=== PATIENT | female | born 1990 | race Caucasian/White ===

== ENCOUNTER 2017-10-27 19:02 | Emergency (ER) | payer BC ==
[2017-10-27] MEDS ORDERED: ACETAMINOPHEN 325 MG TABLET ONE (19:47)
[2017-10-27] MEDS ORDERED: IBUPROFEN 400 MG TAB ONE (19:48)
[2017-10-27] MEDS ORDERED: IBUPROFEN 200 MG TAB PO ONE (19:48)
--- NOTE | 2017-10-27 21:09 | EDPHYS ---
Physician Documentation [facility] Name: Luis Connor Age: 27 yrs Sex: Female : 1990 Arrival Date: 10/27/2017 Time: 19:04 Bed 5 Private MD: ED Physician Uli Dukes HPI: 10/28 01:57 This 27 yrs old Female presents to ER via Ambulatory with complaints of Sore snw Throat, Swollen Glands. 01:57 The patient presents with sore throat, dysphagia. The patient describes throat pain as snw raw, scratchy. Onset: The symptoms/episode began/occurred suddenly, 3 day(s) ago. Severity of symptoms: At their worst the symptoms were moderate. Associated signs and symptoms: Pertinent positives: chills, cough, fever, flu-like symptoms, headache, Sore throat. It is unknown whether or not the patient has had similar symptoms in the past. The patient has not recently seen a physician. 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 - Social history:: Smoking status: Patient/guardian denies using tobacco. ROS: 10/28 01:56 Eyes: Negative for injury, pain, redness, and discharge, Neck: Negative for injury, snw pain, and swelling, Cardiovascular: Negative for chest pain, palpitations, and edema, Respiratory: Negative for shortness of breath, cough, wheezing, and pleuritic chest pain, Abdomen/GI: Negative for abdominal pain, nausea, vomiting, diarrhea, and constipation, Back: Negative for injury and pain, : Negative for injury, bleeding, discharge, and swelling, MS/Extremity: Negative for injury and deformity, Skin: Negative for injury, rash, and discoloration, Neuro: Negative for headache, weakness, numbness, tingling, and seizure. Constitutional: Positive for body aches, fever, malaise, poor PO intake. ENT: Positive for sinus congestion, sore throat. Exam: 01:54 Head/Face: Normocephalic, atraumatic. Eyes: Pupils equal round and reactive to light, snw extra-ocular motions intact. Lids and lashes normal. Conjunctiva and sclera are non-icteric and not injected. Cornea within normal limits. Periorbital areas with no swelling, redness, or edema. Neck: Trachea midline, no thyromegaly or masses palpated, and no cervical lymphadenopathy. Supple, full range of motion without nuchal rigidity, or vertebral point tenderness. No Meningismus. Chest/axilla: Normal chest wall appearance and motion. Nontender with no deformity. No lesions are appreciated. 01:54 Respiratory: Lungs have equal breath sounds bilaterally, clear to auscultation and percussion. No rales, rhonchi or wheezes noted. No increased work of breathing, no retractions or nasal flaring. Abdomen/GI: Soft, non-tender, with normal bowel sounds. No distension or tympany. No guarding or rebound. No evidence of tenderness throughout. Back: No spinal tenderness. No costovertebral tenderness. Full range of motion. Skin: Warm, dry with normal turgor. Normal color with no rashes, no lesions, and no evidence of cellulitis. MS/ Extremity: Pulses equal, no cyanosis. Neurovascular intact. Full, normal range of motion. Neuro: Awake and alert, GCS 15, oriented to person, place, time, and situation. Cranial nerves II-XII grossly intact. Motor strength 5/5 in all extremities. Sensory grossly intact. Cerebellar exam normal. Normal gait. 01:54 Constitutional: The patient appears alert, awake, uncomfortable. 01:54 ENT: Mouth: is normal, Posterior pharynx: Tonsils: bilaterally enlarged, with exudate, erythema, that is mild, exudate, that is moderate, Voice: is normal. 01:54 ENT: TM's: erythema, that is moderate, bilaterally, fluid levels, bilaterally. 01:54 Cardiovascular: Rate: tachycardic. Vital Signs: 10/27 19:52 BP 121 / 99; Pulse 120; Resp 25; Temp 102.9; Pulse Ox 99% on R/A; Weight 84.82 kg; aj Height 5 ft. 7 in. (170.18 cm); 21:01 BP 111 / 68; Pulse 110; Resp 18; Pulse Ox 98% on R/A; ak1 21:18 BP 107 / 62; Pulse 97; Resp 16; Temp 99.4(O); Pulse Ox 99% on R/A; Pain 6/10; cc 19:52 Body Mass Index 29.29 (84.82 kg, 170.18 cm) MDM: 20:38 Patient medically screened. snw 10/28 01:56 Data reviewed: vital signs, nurses notes. Data interpreted: Pulse oximetry: on room air snw is 99 %. Interpretation: normal. Counseling: I had a detailed discussion with the patient and/or guardian regarding: the historical points, exam findings, and any diagnostic results supporting the discharge/admit diagnosis, lab results, the need for outpatient follow up, to return to the emergency department if symptoms worsen or persist or if there are any questions or concerns that arise at home. Special discussion: Based on the history and exam findings, there is no indication for further emergent testing or inpatient evaluation. I discussed with the patient/guardian the need to see the primary care provider for further evaluation of the symptoms. 10/27 19:54 Order name: Strep; Complete Time: 20:38 10/27 20:28 Order name: Throat Culture [facility] 10/27 20:40 Order name: Urine Culture [facility] 10/27 20:40 Order name: Urine Microscopic Only [facility] 10/27 21:17 Order name: Urine Dipstick--Ancillary (enter results) [facility] 10/27 20:40 Order name: Urine Test (obtain specimen); Complete Time: 21:16 sn 10/27 20:40 Order name: Urine Dipstick-Ancillary (obtain specimen); Complete Time: 21:16 [facility] 10/27 21:07 Order name: Recheck VS: temp; Complete Time: 21:16 w 10/27 21:17 Order name: Urine --Ancillary (enter results) [facility] 10/27 21:08 Order name: PO challenge; Complete Time: 21:20 snw Administered Medications: 10/27 19:54 Drug: Tylenol 650 mg Route: PO; aj 21:02 Follow up: Response: Temperature is decreased ak1 19:54 Drug: Motrin 800 mg Route: PO; aj 21:02 Follow up: Response: No adverse reaction; Temperature is decreased ak1 21:23 Drug: Rocephin (cefTRIAXone) 1 grams Route: IM; Site: right gluteus; bp 21:38 Follow up: Response: No adverse reaction bp 21:23 Drug: Decadron 8 mg Route: PO; bp 21:38 Follow up: Response: No adverse reaction bp Disposition: 10/28 14:29 Co-signature as Attending Physician, Uli Dukes MD I agree with the assessment and shaista plan of care. Disposition: 10/27/17 21:09 Discharged to Home. Impression: Fever, unspecified, Acute pharyngitis, Acute upper respiratory infection, unspecified. - Condition is Stable. - Discharge Instructions: Fever, Adult, Pharyngitis, Upper Respiratory Infection, Adult, Rehydration, Adult. - Prescriptions for Diclofenac Sodium 75 mg Oral Tablet Sustained Release - take 1 tablet by ORAL route 2 times per day; 30 tablet. Zithromax 500 mg Oral Tablet - take 1 tablet by ORAL route once daily for 5 days; 5 tablet. - Work release form, Medication Reconciliation Form, Thank You Letter, Antibiotic Education, Prescription Opioid Use form. - Follow up: Private Physician; When: 2 - 3 days; Reason: Recheck today's complaints, Continuance of care, Re-evaluation by your physician. Follow up: Emergency Department; When: As needed; Reason: Worsening of condition. Signatures: Dispatcher [employer] Syeda Solomon RN RN aj Anderson, Corey, MD MD cha Therrien, Shelly, BATTERYMAN-C BATTERYMAN-Csnw Izaiah Ruiz RN RN bp Krenek, Amber RN ak1 Corrections: (The following items were deleted from the chart) 10/27 21:23 20:47 GC (Malcom/Chl) Probe URINE ordered. EDMS EDMS
--- NOTE | 2017-10-27 21:09 | ER ---
Nurse's Notes [facility] Name: Luis Connor Age: 27 yrs Sex: Female : 1990 Arrival Date: 10/27/2017 Time: 19:04 Bed 5 Private MD: Diagnosis: Fever, unspecified;Acute pharyngitis;Acute upper respiratory infection, unspecified Presentation: 10/27 19:49 Presenting complaint: Patient states: Sore throat with fever for 3 days. Bilaterally aj swollen tonsils with green patchy exudate noted in triage. Transition of care: patient was not received from another setting of care. Onset of symptoms was October 23, 2017. Initial Sepsis Screen: Does the patient meet any 2 criteria? Temp <36.0*C (96.8*F)) or > 38.3*C (100.4*F). HR > 90 bpm. Yes Does the patient have a suspected source of infection? Yes:. Care prior to arrival: None. 19:49 Method Of Arrival: Ambulatory aj 19:49 Acuity: SHASTA 4 aj Triage Assessment: 19:52 General: Appears in no apparent distress. uncomfortable, Behavior is calm, cooperative, aj appropriate for age. Pain: Complains of pain in left aspect of posterior pharynx and right aspect of posterior pharynx. EENT: Throat has patchy exudate has enlarged tonsils bilaterally. Neuro: Level of Consciousness is awake, alert, obeys commands, Oriented to person, place, time, situation, Appropriate for age. Respiratory: Reports cough that is Airway is patent Respiratory effort is even, unlabored, Respiratory pattern is regular, symmetrical. Derm: Skin is intact, is healthy with good turgor, Skin is normal, Skin temperature is hot. 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 - Social history:: Smoking status: Patient/guardian denies using tobacco. Screenin:00 Abuse screen: Denies threats or abuse. Denies injuries from another. Nutritional ak1 screening: No deficits noted. Tuberculosis screening: No symptoms or risk factors identified. Fall Risk None identified. Assessment: 20:59 General: Appears uncomfortable, Behavior is calm, cooperative. Pain: Complains of pain ak1 in throat. Neuro: No deficits noted. Cardiovascular: No deficits noted. Respiratory: Airway is patent Breath sounds are clear bilaterally. GI: No signs and/or symptoms were reported involving the gastrointestinal system. : No signs and/or symptoms were reported regarding the genitourinary system. EENT: Throat is reddened. Derm: Reports fever. Musculoskeletal: No signs and/or symptoms reported regarding the musculoskeletal system. 21:36 Reassessment: PT D/C HOME AMBULATORY, DX WITH ACUTE URI, ACUTE PHARYNGITIS AND FEVER. bp Respiratory: Airway is patent Respiratory effort is even, unlabored, Respiratory pattern is regular, symmetrical. Vital Signs: 19:52 BP 121 / 99; Pulse 120; Resp 25; Temp 102.9; Pulse Ox 99% on R/A; Weight 84.82 kg; aj Height 5 ft. 7 in. (170.18 cm); 21:01 BP 111 / 68; Pulse 110; Resp 18; Pulse Ox 98% on R/A; ak1 21:18 BP 107 / 62; Pulse 97; Resp 16; Temp 99.4(O); Pulse Ox 99% on R/A; Pain 6/10; cc 19:52 Body Mass Index 29.29 (84.82 kg, 170.18 cm) aj ED Course: 19:04 Patient arrived in ED. as 19:51 Triage completed. aj 19:52 Arm band placed on left wrist. Patient placed in waiting room, Patient notified of wait aj time. Antipyretics given from triage as ordered by an ER provider. Labs ordered per protocol. 20:06 Geno Kelly FNP-C is PHCP. snw 20:06 Uli Dukes MD is Attending Physician. snw 20:59 Nga Suggs, MAYRLU is Primary Nurse. ak1 21:00 Patient has correct armband on for positive identification. Bed in low position. Call ak1 light in reach. Side rails up X 1. Adult w/ patient. Pulse ox on. NIBP on. 21:01 No provider procedures requiring assistance completed. ak1 21:37 Patient did not have IV access during this emergency room visit. bp Administered Medications: 19:54 Drug: Tylenol 650 mg Route: PO; aj 21:02 Follow up: Response: Temperature is decreased ak1 19:54 Drug: Motrin 800 mg Route: PO; aj 21:02 Follow up: Response: No adverse reaction; Temperature is decreased ak1 21:23 Drug: Rocephin (cefTRIAXone) 1 grams Route: IM; Site: right gluteus; bp 21:38 Follow up: Response: No adverse reaction bp 21:23 Drug: Decadron 8 mg Route: PO; bp 21:38 Follow up: Response: No adverse reaction bp Outcome: 21:09 Discharge ordered by . snilana 21:37 Discharged to home ambulatory. bp 21:37 Condition: stable 21:37 Discharge instructions given to patient, Instructed on discharge instructions, follow up and referral plans. medication usage, Demonstrated understanding of instructions, follow-up care, medications, Prescriptions given X 2. 21:38 Patient left the ED. bp Addendum: 10/30/2017 10:50 Addendum: Culture Results: Positive urine culture. No further action required. Other: i w culture report was reviewed by Figueroa SEGOVIA, pt had no urinary complaints, no further action needed . Signatures: Syeda Serra RN RN Geno Gonsalez, UMBRELLA REPAIRER-C UMBRELLA REPAIRER-Fouzia White Irene, MARYLU VALERO Elisabeth Banks Amber, RN RN ak1 Izaiah Ruiz RN RN bp
[2017-10-27] MEDS ORDERED: CEFTRIAXONE 1000 MG/VIAL ONE (21:18)
[2017-10-27] MEDS ORDERED: DEXAMETHASONE 4 MG TAB ONE (21:18)
[2017-10-27] MEDS ORDERED: LIDOCAINE 1% MPF 5 ML VIAL ONE (21:18)
[2017-10-27 21:51] LABS: Urine Blood TRACE (NEG); Urine Glucose NEGATIVE (NEG); Urine Protein NEGATIVE (NEG); Urine Specific Gravity 1.015 (1.005-1.030)
[2017-10-27 21:51] LABS: Urine Bacteria 20-50 /HPF (<20); Urine Culture Reflex Order NOT NEEDED; Urine RBC <5 /HPF (NONE SEEN)
== END 2017-10-27 21:38 | disposition home or self-care (01) ==
LOC: ER 19:02
DX: J06.9 Acute upper respiratory infection, unspecified (principal); J02.9 Acute pharyngitis, unspecified; Z88.2 Allergy status to sulfonamides; Z88.8 Allergy status to other drugs, medicaments and biological substances; J45.909 Unspecified asthma, uncomplicated
CPT/HCPCS: 81003; 81015; 81025; 87070; 87077; 87081; 87086; 87088; 87186; 96372; 99284

== ENCOUNTER 2019-03-15 17:47 | Emergency (ER) | payer BC, SELFPAY ==
[2019-03-15 18:25] LABS: Urine Blood NEGATIVE (NEG); Urine Glucose NEGATIVE (NEG); Urine Protein NEGATIVE (NEG); Urine pH 6.5 (5.0-7.0)
[2019-03-15 19:28] LABS: Urine Bacteria >50 /HPF (<20); Urine RBC <5 /HPF (NONE SEEN)
[2019-03-15 19:29] LABS: Urine Culture Reflex Order NOT NEEDED; Urine Mucus 1+ /HPF (NONE SEEN)
[2019-03-15 20:15] LABS: Absolute Lymphocytes (CBC) 1.7 K/uL (0.7-4.9); Basophils % 0.8 % (0-1.3); Lymphocytes % 22.1 % (15.3-44.8); MPV 8.2 fL (7.6-11.3)
[2019-03-15] MEDS ORDERED: NA CHLORIDE 0.9% 1,000 ML ONE (20:20)
[2019-03-15] MEDS ORDERED: CEFTRIAXONE/SWI 1gm 1 GM/10 ML SYR ONE (20:20)
[2019-03-15 20:37] LABS: Potassium 3.7 mmol/L (3.5-5.1)
--- NOTE | 2019-03-15 20:40 | ER ---
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 Transition of care: patient was not received from another setting of care. Onset of symptoms was March 08, 2019. Risk Assessment: Do you want to hurt yourself or someone else? Patient reports no desire to harm self or others. Initial Sepsis Screen: Does the patient meet any 2 criteria? No. Patient's initial sepsis screen is negative. Does the patient have a suspected source of infection? No. Patient's initial sepsis screen is negative. Care prior to arrival: None. 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 - Social history:: Smoking status: Smoking status: Patient/guardian denies using tobacco. - Ebola Screening: : Patient negative for fever greater than or equal to 101.5 degrees Fahrenheit, and additional compatible Ebola Virus Disease symptoms Patient denies exposure to infectious person Patient denies travel to an Ebola-affected area in the 21 days before illness onset No symptoms or risks identified at this time. Screenin:40 Abuse screen: Denies threats or abuse. Nutritional screening: No deficits noted. tr5 Tuberculosis screening: No symptoms or risk factors identified. Fall Risk None identified. Assessment: 18:40 General: Appears in no apparent distress. Behavior is calm, cooperative, appropriate tr5 for age. Pain: Complains of pain in pelvis. Pain: Pain does not radiate. Quality of pain is described as crampy, Pain began suddenly, Is intermittent. Neuro: Level of Consciousness is awake, alert, obeys commands, Oriented to person, place, time, Office Engineer are equal bilaterally Moves all extremities. Cardiovascular: Heart tones present Capillary refill < 3 seconds Pulses are all present. Edema is absent. Respiratory: Airway is patent Respiratory effort is even, unlabored, Respiratory pattern is regular, symmetrical. GI: Reports lower abdominal pain, intolerance of food, nausea, vomiting. : No signs and/or symptoms were reported regarding the genitourinary system. EENT: No signs and/or symptoms were reported regarding the EENT system. Derm: No signs and/or symptoms reported regarding the dermatologic system. Musculoskeletal: Capillary refill < 3 seconds, Range of motion: intact in all extremities. 20:00 Reassessment: No changes from previously documented assessment. Patient and/or family tr5 updated on plan of care and expected duration. Pain level reassessed. Patient is alert, oriented x 3, equal unlabored respirations, skin warm/dry/pink. 21:00 Reassessment: Patient appears in no apparent distress at this time. No changes from tr5 previously documented assessment. Patient and/or family updated on plan of care and expected duration. Pain level reassessed. Patient is alert, oriented x 3, equal unlabored respirations, skin warm/dry/pink. Vital Signs: 18:03 BP 113 / 69; Pulse 92; Resp 16; Temp 98.7; Pulse Ox 99% on R/A; Weight 81.65 kg; Height iw 5 ft. 7 in. (170.18 cm); Pain 7/10; 19:00 BP 110 / 80; Pulse 88; Resp 16; Pulse Ox 100% on R/A; tr5 20:00 BP 116 / 84; Pulse 90; Resp 17; Pulse Ox 99% on R/A; tr5 21:00 BP 112 / 82; Pulse 90; Resp 17; Pulse Ox 100% on R/A; tr5 18:03 Body Mass Index 28.19 (81.65 kg, 170.18 cm) ED Course: 17:51 Patient arrived in ED. rg4 18:02 Triage completed. iw 18:03 Arm band placed on. iw 18:38 Ifeanyi Baker, RN is Primary Nurse. tr5 18:40 Bed in low position. Call light in reach. Side rails up X 1. tr5 18:41 Figueroa Arias PA is PHCP. jr8 18:41 Izabella Houser MD is Attending Physician. jr8 19:59 Missed attempt(s): 22 gauge in right antecubital area. lt1 20:00 Initial lab(s) drawn, by me, sent to lab. Inserted saline lock: 22 gauge in left lt1 antecubital area, using aseptic technique. 20:23 Transvaginal OB US In Process Unspecified. EDMS 21:26 No provider procedures requiring assistance completed. IV discontinued. tr5 Administered Medications: 20:24 Drug: NS 0.9% 1000 ml Route: IV; Rate: 1000 ml; Site: right antecubital; tr5 21:53 Follow up: IV Status: Completed infusion; IV Intake: 1000ml tr5 20:24 Drug: Rocephin 1 grams Route: IV; Rate: calculated rate; Site: right antecubital; tr5 21:53 Follow up: Response: No adverse reaction; IV Status: Completed infusion tr5 Intake: 21:53 IV: 1000ml; Total: 1000ml. tr5 Outcome: 20:39 Discharge ordered by . jr8 21:26 Discharged to home ambulatory. tr5 21:26 Condition: stable 21:26 Discharge instructions given to patient, significant other, Instructed on discharge instructions, follow up and referral plans. medication usage, Demonstrated understanding of instructions, follow-up care, medications, Prescriptions given X 2. 21:54 Patient left the ED. 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
--- NOTE | 2019-03-15 20:41 | EDPHYS ---
Physician Documentation [facility] Name: Luis Connor Age: 28 yrs Sex: Female : 1990 Arrival Date: 03/15/2019 Time: 17:51 Bed 28 Private MD: ED Physician Izabella Houser HPI: 03/15 20:12 This 28 yrs old Female presents to ER via Ambulatory with complaints of jr8 Pelvic Pain, 11 wks . 20:12 Onset: The symptoms/episode began/occurred acutely, yesterday. Associated signs and jr8 symptoms: Pertinent positives: vomiting. Modifying factors: The patient symptoms are alleviated by nothing, the patient symptoms are aggravated by nothing. The patient has not experienced similar symptoms in the past. The patient has not recently seen a physician. 20:13 The estimated gestational age is 11 weeks. course: care: none, jr8 Leakage of Fluid: none appreciated, Ultrasound: the patient has not had an ultrasound. Previous pregnancies: the patient has never been . [employer]ER: 18:03 LMP 12/30/2018 iw 20:13 1, Full Term 0, Premature 0, 0, Living 0, LMP 12/30/2018, jr8 Verified, EDC 10/06/2019, Gestational age from LMP: 10 weeks 6 days Historical: - Allergies: 18:03 Benadryl; iw 18:03 Sulfa (Sulfonamide Antibiotics); iw - Home Meds: 18:03 None [Active]; iw - PMHx: 18:03 Asthma; iw - PSHx: 18:03 None; iw - Immunization history:: Adult Immunizations not up to date. - Social history:: Smoking status: Smoking status: Patient/guardian denies using tobacco. - Ebola Screening: : Patient negative for fever greater than or equal to 101.5 degrees Fahrenheit, and additional compatible Ebola Virus Disease symptoms Patient denies exposure to infectious person Patient denies travel to an Ebola-affected area in the 21 days before illness onset No symptoms or risks identified at this time. ROS: 20:13 Eyes: Negative for injury, pain, redness, and discharge, ENT: Negative for injury, jr8 pain, and discharge, Neck: Negative for injury, pain, and swelling, Cardiovascular: Negative for chest pain, palpitations, and edema, Respiratory: Negative for shortness of breath, cough, wheezing, and pleuritic chest pain, Back: Negative for injury and pain, MS/Extremity: Negative for injury and deformity, Skin: Negative for injury, rash, and discoloration, Neuro: Negative for headache, weakness, numbness, tingling, and seizure. 20:13 Abdomen/GI: Positive for abdominal pain, nausea and vomiting, Negative for diarrhea, abdominal distension, anorexia, dysphagia, hematemesis, black/tarry stool, rectal pain, rectal bleeding, bowel incontinence, flatulence. 20:13 : Positive for urinary frequency, menstrual abnormality, Negative for vaginal bleeding, vaginal discharge, vaginal itching. Exam: 20:13 Eyes: Pupils equal round and reactive to light, extra-ocular motions intact. Lids and jr8 lashes normal. Conjunctiva and sclera are non-icteric and not injected. Cornea within normal limits. Periorbital areas with no swelling, redness, or edema. ENT: Nares patent. No nasal discharge, no septal abnormalities noted. Tympanic membranes are normal and external auditory canals are clear. Oropharynx with no redness, swelling, or masses, exudates, or evidence of obstruction, uvula midline. Mucous membranes moist. Neck: Trachea midline, no thyromegaly or masses palpated, and no cervical lymphadenopathy. Supple, full range of motion without nuchal rigidity, or vertebral point tenderness. No Meningismus. Cardiovascular: Regular rate and rhythm with a normal S1 and S2. No gallops, murmurs, or rubs. Normal PMI, no JVD. No pulse deficits. Respiratory: Lungs have equal breath sounds bilaterally, clear to auscultation and percussion. No rales, rhonchi or wheezes noted. No increased work of breathing, no retractions or nasal flaring. Back: No spinal tenderness. No costovertebral tenderness. Full range of motion. Skin: Warm, dry with normal turgor. Normal color with no rashes, no lesions, and no evidence of cellulitis. MS/ Extremity: Pulses equal, no cyanosis. Neurovascular intact. Full, normal range of motion. Neuro: Awake and alert, GCS 15, oriented to person, place, time, and situation. Cranial nerves II-XII grossly intact. Motor strength 5/5 in all extremities. Sensory grossly intact. Cerebellar exam normal. Normal gait. 20:13 Abdomen/GI: Inspection: abdomen appears normal, Bowel sounds: active, all quadrants, Palpation: soft, in all quadrants, mild abdominal tenderness, in the suprapubic area, right lower quadrant and left lower quadrant, mass, is not appreciated, rebound tenderness, is not appreciated, voluntary guarding, is not appreciated, involuntary guarding, is not appreciated, no appreciated organomegaly, Indicators: McBurney's point is not tender, Velasquez's sign is negative, Rovsing's sign is negative, Liver: tenderness, is not appreciated. Vital Signs: 18:03 BP 113 / 69; Pulse 92; Resp 16; Temp 98.7; Pulse Ox 99% on R/A; Weight 81.65 kg; Height iw 5 ft. 7 in. (170.18 cm); Pain 7/10; 19:00 BP 110 / 80; Pulse 88; Resp 16; Pulse Ox 100% on R/A; tr5 20:00 BP 116 / 84; Pulse 90; Resp 17; Pulse Ox 99% on R/A; tr5 21:00 BP 112 / 82; Pulse 90; Resp 17; Pulse Ox 100% on R/A; tr5 18:03 Body Mass Index 28.19 (81.65 kg, 170.18 cm) iw MDM: 19:20 Patient medically screened. jr8 20:20 Differential diagnosis: threatened Ab, inevitable Ab, missed Ab, ectopic . jr8 Data reviewed: vital signs, nurses notes, lab test result(s), radiologic studies, ultrasound. Data interpreted: Pulse oximetry: on room air is 99 %. Interpretation: normal. Counseling: I had a detailed discussion with the patient and/or guardian regarding: the historical points, exam findings, and any diagnostic results supporting the discharge/admit diagnosis, lab results, radiology results, the need for outpatient follow up, an OB/Gyne specialist, to return to the emergency department if symptoms worsen or persist or if there are any questions or concerns that arise at home. 03/15 18:10 Order name: Urine Microscopic Only; Complete Time: 19:32 ss 03/15 18:10 Order name: Urine Culture 03/15 18:11 Order name: Urine Dipstick--Ancillary (enter results); Complete Time: 19:32 ss 03/15 18:11 Order name: Urine --Ancillary (enter results); Complete Time: 19:32 ss 09/12 19:32 Order name: Quantitative Hcg [facility] 03/15 19:32 Order name: Basic Metabolic Panel [facility] 03/15 19:32 Order name: CBC with Diff; Complete Time: 20:19 [facility] 03/15 19:32 Order name: IV Saline Lock; Complete Time: 20:00 [facility] 03/15 19:32 Order name: Labs collected and sent; Complete Time: 20:00 [facility] 03/15 19:32 Order name: NPO; Complete Time: 19:36 [facility] 03/15 19:32 Order name: Urine Dipstick-Ancillary (obtain specimen); Complete Time: 19:36 [facility] 03/15 19:32 Order name: Transvaginal OB US; Complete Time: 21:46 jr Administered Medications: 20:24 Drug: NS 0.9% 1000 ml Route: IV; Rate: 1000 ml; Site: right antecubital; tr5 21:53 Follow up: IV Status: Completed infusion; IV Intake: 1000ml tr5 20:24 Drug: Rocephin 1 grams Route: IV; Rate: calculated rate; Site: right antecubital; tr5 21:53 Follow up: Response: No adverse reaction; IV Status: Completed infusion tr5 Disposition: 03/15/19 20:39 Discharged to Home. Impression: Urinary tract infection, site not specified, Abdominal and pelvic pain. - Condition is Stable. - Discharge Instructions: Abdominal Pain During , and Urinary Tract Infection. - Prescriptions for Macrobid 100 mg Oral Capsule - take 1 capsule by ORAL route every 12 hours for 7 days; 14 capsule. promethazine 25 mg Oral Tablet - take 1 tablet by ORAL route every 6 hours As needed; 20 tablet. - Medication Reconciliation Form, Thank You Letter, Antibiotic Education, Prescription Opioid Use form. - Follow up: Private Physician; When: 2 - 3 days; Reason: Recheck today's complaints, Continuance of care, Re-evaluation by your physician. - Problem is new. - Symptoms have improved. Addendum: 03/19/2019 15:53 Co-signature as Attending Physician, Izabella Houser MD. m a2 Signatures: Dispatcher [employer] Magda Bedolla RN RN Figueroa Collins PA PA jr8 Izabella Houser MD MD ma2 Ifeanyi Baker, RN RN tr5 Corrections: (The following items were deleted from the chart) 03/15 21:54 20:39 03/15/2019 20:39 Discharged to Home. Impression: Urinary tract infection, site tr5 not specified; Abdominal and pelvic pain. Condition is Stable. Forms are Medication Reconciliation Form, Thank You Letter, Antibiotic Education, Prescription Opioid Use. Follow up: Private Physician; When: 2 - 3 days; Reason: Recheck today's complaints, Continuance of care, Re-evaluation by your physician. Problem is new. Symptoms have improved. jr8
--- NOTE | 2019-03-15 21:37 | RAD REPORT ---
EXAM DESCRIPTION: US - Transvaginal OB - 03/15/2019 8:21 pm CLINICAL HISTORY: with pelvic pain COMPARISON: None. FINDINGS: The uterus measures 8 x 6 x 6 centimeters. A normal appearing gestational sac is present within the endometrium. Within this is a yolk sac and pole with a crown-rump length 1.7 centime ters. Cardiac activity 159 beats per minute 3 x 0.2 x 1.9 centimeters subchorionic bleed Right and left ovary appear normal. . An adnexal mass is not noted. No significant free fluid is seen. IMPRESSION: Single live intrauterine with an estimated gestational age 8 weeks 1 day ULICES 10/24/2019 3 x 0.2 x 1.9 centimeters subchorionic bleed
[2019-03-16 03:36] VITALS: TEMP 98.7
[2019-03-16 03:41] VITALS: BP 112/82; O2SAT 100
== END 2019-03-15 21:54 | disposition home or self-care (01) ==
LOC: ER 17:47
DX: O23.41 Unspecified infection of urinary tract in pregnancy, first trimester (principal); Z3A.11 11 weeks gestation of pregnancy; Z88.2 Allergy status to sulfonamides; Z88.8 Allergy status to other drugs, medicaments and biological substances
CPT/HCPCS: 36415; 76817; 80048; 81003; 81015; 81025; 84702; 85025; 87086; 87088; 96365; 99284; J0696; J7030

== ENCOUNTER 2021-02-01 16:25 | Emergency (ER) | payer OTHER ==
--- NOTE | 2021-02-01 18:35 | ER ---
Nurse's Notes [facility] Name: Luis Connor Age: 30 yrs Sex: Female : 1990 Arrival Date: 02/01/2021 Time: 16:29 Bed Waiting Private MD: Diagnosis: Presentation: 02/01 16:49 Chief complaint: Patient states: Fever, cough, SOB, fatigue, weak, tired, chest pain ll1 with cough for 4 days. Fever up to 103 at home. Taking tylenol every 4 hours. + nausea. Coronavirus screen: Client denies travel out of the [place] in the last 14 days. congestion, cough unrelated to allergies, difficulty breathing, fatigue, fever, headache, muscle pain, nausea, shortness of breath, Client presents with at least one sign or symptom that may indicate coronavirus-19. Standard/surgical mask placed on the client. Ebola Screen: Patient denies travel to an Ebola-affected area in the 21 days before illness onset. Initial Sepsis Screen: Does the patient meet any 2 criteria? HR > 90 bpm. No. Patient's initial sepsis screen is negative. Does the patient have a suspected source of infection? Yes: Productive cough/pneumonia. Risk Assessment: Do you want to hurt yourself or someone else? Patient reports no desire to harm self or others. Onset of symptoms was January 29, 2021. 16:49 Method Of Arrival: Ambulatory ll1 16:49 Acuity: SHASTA 3 ll1 Historical: - Allergies: 16:51 Sulfa (Sulfonamide Antibiotics); ll1 16:51 Benadryl; ll1 - PMHx: 16:51 Asthma; ll1 - PSHx: 16:51 None; ll1 - Immunization history:: Client reports having NOT received the Covid vaccine. Flu vaccine is not up to date. - Social history:: Smoking status: Patient denies any tobacco usage or history of. Vital Signs: 16:49 BP 114 / 76; Pulse 111; Resp 18; Temp 100.4; Pulse Ox 96% ; Weight 95.25 kg; Height 5 ll1 ft. 7 in. (170.18 cm); Pain 9/10; 16:49 Body Mass Index 32.89 (95.25 kg, 170.18 cm) ll1 ED Course: 16:29 Patient arrived in ED. ds1 16:51 Triage completed. ll1 16:52 Arm band placed on. ll1 Administered Medications: No medications were administered Outcome: 18:35 Patient left the ED. ll1 Signatures: Zenia Robertson ds1 Jack Colby, RN RN 1
[2021-02-01 18:40] VITALS: BP 114/76; TEMP 100.4; O2SAT 96
== END 2021-02-01 18:35 | disposition left against medical advice (07) ==
LOC: ER 16:25
DX: R50.9 Fever, unspecified (principal); R05 Cough; R06.02 Shortness of breath; R53.1 Weakness; R07.9 Chest pain, unspecified; R53.83 Other fatigue; J45.909 Unspecified asthma, uncomplicated

== ENCOUNTER 2021-02-06 10:52 | Emergency (ER) | payer OTHER ==
--- NOTE | 2021-02-06 12:37 | RAD REPORT ---
EXAM DESCRIPTION: RAD - Chest Single View - 02/06/2021 12:29 pm CLINICAL HISTORY: COUGH Chest pain. COMPARISON: <Comparisons> FINDINGS: Portable technique limits examination quality. Mild bilateral peripherally oriented pulmonary opacities are present likely representing infection/pn eumonia. The heart is normal in size. No displaced fractures.
[2021-02-06 14:53] LABS: Absolute Lymphocytes (CBC) 0.7 K/uL (0.7-4.9); Basophils % 0.4 % (0-1.3); Hematocrit 38.4 % (36.0-45.0); Lymphocytes % 14.6 % (15.3-44.8); MPV 8.2 fL (7.6-11.3); RBC Red Blood Cell Count 5.32 M/uL (3.86-4.86)
[2021-02-06] MEDS ORDERED: IVERMECTIN 3 MG TABLET PO ONE (15:00)
[2021-02-06] MEDS ORDERED: METHYLPREDNISOLONE 125 MG INJ ONE (15:01)
[2021-02-06] MEDS ORDERED: NA CHLORIDE 0.9% 1,000 ML ONE (15:01)
[2021-02-06 15:04] LABS: Potassium 3.9 mmol/L (3.5-5.1)
[2021-02-06 17:02] LABS: Urine Blood Trace-intact (Negative); Urine Glucose Negative (Negative); Urine Protein 2+ (Negative); Urine Specific Gravity 1.015 (1.005-1.030); Urine pH 5.5 (5.0-7.0)
[2021-02-06 17:25] LABS: Urine Specific Gravity/Preg 1.015 (1.005-1.030)
[2021-02-06 17:41] LABS: Urine Bacteria <20 /HPF (<20); Urine Mucus 1+ /HPF (NONE SEEN); Urine RBC <5 /HPF (NONE SEEN)
--- NOTE | 2021-02-06 17:51 | ER ---
Nurse's Notes [facility] Name: Luis Connor Age: 30 yrs Sex: Female : 1990 Arrival Date: 02/06/2021 Time: 10:55 Bed DIS1 Private MD: Diagnosis: Other viral pneumonia;SARS-associated coronavirus as the cause of diseases classified elsewhere;UTI/ Urinary tract infection, site not specified Presentation: 02/06 12:07 Chief complaint: Patient states: SOB, Dizziness, N/V/D, fever x 1 wk. Coronavirus kg screen: Client denies travel out of the [place] in the last 14 days. At this time, unable to obtain information related to travel outside the [place] Client presents with at least one sign or symptom that may indicate coronavirus-19. Standard/surgical mask placed on the client. Provider contacted for isolation considerations. Ebola Screen: Patient negative for fever greater than or equal to 101.5 degrees Fahrenheit, and additional compatible Ebola Virus Disease symptoms Patient denies exposure to infectious person. Patient denies travel to an Ebola-affected area in the 21 days before illness onset. Initial Sepsis Screen: Does the patient meet any 2 criteria? No. Patient's initial sepsis screen is negative. Does the patient have a suspected source of infection? No. Patient's initial sepsis screen is negative. Risk Assessment: Do you want to hurt yourself or someone else? Patient reports no desire to harm self or others. Onset of symptoms was January 21, 2021. 12:07 Method Of Arrival: Ambulatory kg 12:07 Acuity: SHASTA 3 kg Triage Assessment: 12:10 General: Appears in no apparent distress. Behavior is calm, cooperative, appropriate kg for age, quiet. Pain: Complains of pain in Generalized. Respiratory: Reports shortness of breath at rest on exertion cough that is non-productive, the patient has mild shortness of breath. 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 - Social history:: Smoking status: Patient denies any tobacco usage or history of. Screenin:12 Abuse screen: Denies threats or abuse. Denies injuries from another. Abuse screen:. kg Nutritional screening: No deficits noted. Tuberculosis screening: No symptoms or risk factors identified. Fall Risk Gait- Weak (10 pts.). Assessment: 14:15 General: Appears uncomfortable, Behavior is calm, cooperative. Pain: Complains of pain aa5 in head Pain currently is 10 out of 10 on a pain scale. Quality of pain is described as aching. Neuro: Level of Consciousness is awake, alert, obeys commands, Oriented to person, place, time, situation, Reports dizziness. Cardiovascular: Heart tones S1 S2 present Rhythm is regular. Respiratory: Airway is patent Respiratory effort is even, unlabored, Respiratory pattern is regular, symmetrical, Breath sounds are clear bilaterally. GI: Abdomen is round non-distended, Bowel sounds present X 4 quads. Abd is soft and non tender X 4 quads. Reports diarrhea, nausea, vomiting. : No signs and/or symptoms were reported regarding the genitourinary system. EENT: No signs and/or symptoms were reported regarding the EENT system. Derm: Skin is dry, Skin is normal, Skin temperature is warm. Musculoskeletal: Range of motion: intact in all extremities. 16:15 Reassessment: Patient is alert, oriented x 3, equal unlabored respirations, skin aa5 warm/dry/pink. Patient states feeling better. 17:20 Reassessment: Patient is alert, oriented x 3, equal unlabored respirations, skin aa5 warm/dry/pink. Vital Signs: 12:07 BP 92 / 63; Pulse 88; Resp 18; Temp 99.4; Pulse Ox 100% on R/A; Weight 99.79 kg (R); kg Height 5 ft. 7 in. (170.18 cm) (R); Pain 10/10; 16:15 BP 99 / 61; Pulse 88; Resp 20 S; Temp 99.4(O); Pulse Ox 98% on R/A; aa5 17:21 BP 105 / 57 Sitting; Pulse 88; Pulse Ox 99% on R/A; eb 17:21 BP 108 / 69 Standing; Pulse 87; Pulse Ox 95% on R/A; eb 12:07 Body Mass Index 34.46 (99.79 kg, 170.18 cm) kg ED Course: 10:55 Patient arrived in ED. mr 12:10 Triage completed. kg 12:10 Arm band placed on. kg 12:22 Christopher Castañeda MD is Attending Physician. kdr 12:28 XRAY Chest (1 view) In Process Unspecified. EDMS 14:15 Patient has correct armband on for positive identification. Placed in recliner. aa5 14:40 Initial lab(s) drawn, by ED staff, sent to lab. Inserted saline lock: 22 gauge in right aa5 antecubital area, using aseptic technique. Blood collected. IV inserted by JENNY Tejada. 14:44 Romy Bentley, RN is Primary Nurse. aa5 17:40 No provider procedures requiring assistance completed. aa5 17:55 IV discontinued, intact, bleeding controlled, No redness/swelling at site. Pressure aa5 dressing applied. Administered Medications: 14:44 Drug: NS 0.9% 1000 ml Route: IV; Rate: 1 bolus; Site: right antecubital; aa5 16:15 Follow up: IV Status: Completed infusion; IV Intake: 1000ml aa5 14:44 Drug: SOLU-Medrol (methylPrednisoLONE) 125 mg Route: IVP; Site: right antecubital; aa5 15:00 Follow up: Response: No adverse reaction aa5 15:34 Drug: Ivermectin 12 mg Route: PO; aa5 16:15 Follow up: Response: No adverse reaction aa5 Intake: 16:15 IV: 1000ml; Total: 1000ml. aa5 Outcome: 17:51 Discharge ordered by . kdr 18:08 Discharged to home ambulatory. aa5 18:08 Condition: improved 18:08 Discharge instructions given to patient, Instructed on discharge instructions, follow up and referral plans. medication usage, Demonstrated understanding of instructions, follow-up care, medications, Prescriptions given X 2. 18:11 Patient left the ED. aa5 Signatures: Dispatcher [employer] EDCT Christopher Castañeda MD MD kdr Bernice Smith Romy Bentley RN RN aa5 Amira Sandoval Kristen, RN RN kg Corrections: (The following items were deleted from the chart) 12:11 12:10 Allergies: Demerol; kg kg 20:05 17:40 IV discontinued, intact, bleeding controlled, No redness/swelling at site. aa5 Pressure dressing applied, aa5
--- NOTE | 2021-02-06 17:51 | EDPHYS ---
Physician Documentation [facility] Name: Luis Connor Age: 30 yrs Sex: Female : 1990 Arrival Date: 02/06/2021 Time: 10:55 Bed DIS1 Private MD: ED Physician Christopher Castañeda HPI: 02/06 21:07 This 30 yrs old Female presents to ER via Ambulatory with complaints of kdr Breathing Difficulty, Fever. 21:07 The patient has shortness of breath at rest, with light activity. Onset: The kdr symptoms/episode began/occurred gradually, 1 week(s) ago. Duration: The symptoms are continuous, and are steadily getting worse. The patient's shortness of breath is aggravated by nothing, is alleviated by nothing. Associated signs and symptoms: Pertinent positives: fever, Shortness of breath. Severity of symptoms: At their worst the symptoms were very mild in the emergency department the symptoms are unchanged. The patient has not experienced similar symptoms in the past. The patient has not recently seen a physician. 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 - Social history:: Smoking status: Patient denies any tobacco usage or history of. ROS: 21:07 Constitutional: Negative for weight loss she has had fever and chills Eyes: Negative kdr for injury, pain, redness, and discharge. 21:16 ENT: Negative for injury, pain, and discharge, Neck: Negative for injury, pain, and kdr swelling, Cardiovascular: Negative for chest pain, palpitations, and edema, Abdomen/GI: Negative for abdominal pain, nausea, vomiting, diarrhea, and constipation, Back: Negative for injury and pain, : Negative for injury, bleeding, discharge, and swelling, MS/Extremity: Negative for injury and deformity, Skin: Negative for injury, rash, and discoloration, Neuro: Negative for headache, weakness, numbness, tingling, and seizure activity. Psych: Negative for depression, anxiety, suicide ideation, homicidal ideation, and hallucinations, Allergy/Immunology: Negative for hives, rash, and allergies, Endocrine: Negative for neck swelling, polydipsia, polyuria, polyphagia, and marked weight changes, Hematologic/Lymphatic: Negative for swollen nodes, abnormal bleeding, and unusual bruising. 21:16 Respiratory: Positive for cough, dyspnea on exertion, shortness of breath, Negative for hemoptysis, orthopnea, pleurisy, sputum production. Exam: 21:16 Constitutional: This is a well developed, well nourished patient who is awake, alert, kdr and in no acute distress. Head/Face: Normocephalic, atraumatic. Eyes: Pupils equal round and reactive to light, extra-ocular motions intact. Lids and lashes normal. Conjunctiva and sclera are non-icteric and not injected. Cornea within normal limits. Periorbital areas with no swelling, redness, or edema. Neck: Trachea midline, no thyromegaly or masses palpated, and no cervical lymphadenopathy. Supple, full range of motion without nuchal rigidity, or vertebral point tenderness. No Meningismus. Chest/axilla: Normal chest wall appearance and motion. Nontender with no deformity. No lesions are appreciated. Cardiovascular: Regular rate and rhythm with a normal S1 and S2. No gallops, murmurs, or rubs. Normal PMI, no JVD. No pulse deficits. Respiratory: Lungs have equal breath sounds bilaterally, clear to auscultation and percussion. No rales, rhonchi or wheezes noted. No increased work of breathing, no retractions or nasal flaring. Abdomen/GI: Soft, non-tender, with normal bowel sounds. No distension or tympany. No guarding or rebound. No evidence of tenderness throughout. Back: No spinal tenderness. No costovertebral tenderness. Full range of motion. Skin: Warm, dry with normal turgor. Normal color with no rashes, no lesions, and no evidence of cellulitis. MS/ Extremity: Pulses equal, no cyanosis. Neurovascular intact. Full, normal range of motion. Neuro: Awake and alert, GCS 15, oriented to person, place, time, and situation. Cranial nerves II-XII grossly intact. Motor strength 5/5 in all extremities. Sensory grossly intact. Cerebellar exam normal. Normal gait. Psych: Awake, alert, with orientation to person, place and time. Behavior, mood, and affect are within normal limits. Vital Signs: 12:07 BP 92 / 63; Pulse 88; Resp 18; Temp 99.4; Pulse Ox 100% on R/A; Weight 99.79 kg (R); kg Height 5 ft. 7 in. (170.18 cm) (R); Pain 10/10; 16:15 BP 99 / 61; Pulse 88; Resp 20 S; Temp 99.4(O); Pulse Ox 98% on R/A; aa5 17:21 BP 105 / 57 Sitting; Pulse 88; Pulse Ox 99% on R/A; eb 17:21 BP 108 / 69 Standing; Pulse 87; Pulse Ox 95% on R/A; eb 12:07 Body Mass Index 34.46 (99.79 kg, 170.18 cm) kg MDM: 17:51 Patient medically screened. kdr 21:16 Data reviewed: vital signs, nurses notes, lab test result(s), radiologic studies. kdr Counseling: I had a detailed discussion with the patient and/or guardian regarding: the historical points, exam findings, and any diagnostic results supporting the discharge/admit diagnosis, lab results, radiology results, the need for outpatient follow up. 02/06 12:13 Order name: Flu kg 02/06 12:14 Order name: Influenza Screen (A ; Complete Time: 14:03 EDWV 02/06 14:10 Order name: CBC with Diff; Complete Time: 17:49 kdr 02/06 14:10 Order name: Chem 7; Complete Time: 17:49 kdr 02/06 12:13 Order name: XRAY Chest (1 view); Complete Time: 14:03 kg 02/06 14:15 Order name: SARS-COV-2 RT PCR; Complete Time: 17:49 EDWV 02/06 17:02 Order name: Urine Dipstick-Ancillary; Complete Time: 17:49 EDWV 02/06 17:05 Order name: Urine --Ancillary (enter results); Complete Time: 17:49 eb 02/06 17:17 Order name: Urine Microscopic Only; Complete Time: 17:49 eb 02/06 17:42 Order name: Urine Culture EDWV 02/06 17:07 Order name: Orthostatic Blood Pressure; Complete Time: 17:17 kdr Administered Medications: 14:44 Drug: NS 0.9% 1000 ml Route: IV; Rate: 1 bolus; Site: right antecubital; aa5 16:15 Follow up: IV Status: Completed infusion; IV Intake: 1000ml aa5 14:44 Drug: SOLU-Medrol (methylPrednisoLONE) 125 mg Route: IVP; Site: right antecubital; aa5 15:00 Follow up: Response: No adverse reaction aa5 15:34 Drug: Ivermectin 12 mg Route: PO; aa5 16:15 Follow up: Response: No adverse reaction aa5 Disposition Summary: 02/06/21 17:51 Discharge Ordered Location: Home kdr Problem: an ongoing problem kdr Symptoms: have improved kdr Condition: Stable kdr Diagnosis - Other viral pneumonia kdr - SARS-associated coronavirus as the cause of diseases classified elsewhere kdr - UTI/ Urinary tract infection, site not specified kdr Followup: kdr - With: Private Physician - When: 2 - 3 days - Reason: If symptoms return, Further diagnostic work-up, Recheck today's complaints, Continuance of care, Re-evaluation by your physician Discharge Instructions: - Discharge Summary Sheet kdr - Urinary Tract Infection, Adult, [id number] kdr - COVID-19 kdr - Things to Know about the COVID-19 Pandemic - [facility] kdr - 10 Things You Can Do to Manage Your COVID-19 Symptoms at Home - [facility] kdr Forms: - Medication Reconciliation Form kdr - Thank You Letter kdr - Antibiotic Education kdr - Prescription Opioid Use kdr Prescriptions: - Prednisone 20 mg Oral Tablet - take 1 tablet by ORAL route every 12 hours for 7 days Take 1 tablet p.o. twice kdr daily for 7 days then 1 tablet daily for 7 days. Dispense quantity sufficient. These directions supersede the other instructions on this prescription; 21 tablet; Refills: 0, Product Selection Permitted - Cipro 500 mg Oral Tablet - take 1 tablet by ORAL route every 12 hours for 7 days; 14 tablet; Refills: 0, kdr Product Selection Permitted Signatures: Dispatcher [employer] EDMS Christopher Castañeda MD MD kdr Romy Bentley RN RN aa5 Blanca Coe RN RN kg Corrections: (The following items were deleted from the chart) 12:11 12:10 Allergies: Demerol; kg kg 13:10 12:14 CORONAVIRUS ordered. EDMS EDMS
[2021-02-06 18:16] VITALS: TEMP 99.4
[2021-02-06 18:20] VITALS: BP 105/57; O2SAT 95
== END 2021-02-06 18:11 | disposition home or self-care (01) ==
LOC: ER 10:52
DX: U07.1 COVID-19 (principal); J12.89 Other viral pneumonia; N39.0 Urinary tract infection, site not specified; J45.909 Unspecified asthma, uncomplicated; Z88.2 Allergy status to sulfonamides; Z88.8 Allergy status to other drugs, medicaments and biological substances
CPT/HCPCS: 96361; 87088; 85025; 87086; 80048; 36415; 81025; 87077; 87186; 87804 ×2; 71045; 96374; 99284; U0003; J7030; J2930; 81003; 81015